=== PATIENT | male | born 1965 | race Caucasian/White ===

== ENCOUNTER 2017-10-30 06:18 | Day surgery (SDC) | payer OTHER ==
[~2017-10-30] VITALS: Ht 162.6 cm; Wt 86.7 kg
[~2017-10-30 06:18] MED LIST: HYDR-762 PO; SECU150P2 SQ
[2017-10-30 07:21] VITALS: Ht 162.6 cm; Wt 86.7 kg
[2017-10-30] MEDS ORDERED: OMEP40CA6 PO (07:28)
[2017-10-30 07:53] VITALS: BP 162/99; PULSE 69; RESP 20
--- NOTE | 2017-10-30 08:36 | OPPN ---
Date/Time of Note Date/Time of Note DATE: 10/30/17 TIME: 08:35 Proc Note GI Procedure Date 10/30/17 Indication: diagnostic Pre-procedure Diagnosis Severe heartburn Post-procedure Diagnosis 1. 3 cm hiatal hernia 2. Erosive esophagitis LA class B 3. Chronic gastritis 4. Gastroparesis Procedure Performed: Endoscopy Surgeon see signature line [employer] none Anesthesia Type: moderate sedation Tourniquet Time none EBL none Transfusion required none Biopsy 1: 3 biopsies from stomach, Biopsy 2: Biopsy from GE junction Grafts/Implants none Tubes/Drains none Complication(s) none Disposition: PACU Procedure Description Dictated YVAN PATEL MD Oct 30, 2017 08:36
[2017-10-30] MEDS ORDERED: FENTAnyl 50 MCG/ML VIAL ONE (08:49)
[2017-10-30] MEDS ORDERED: MIDAZOLAM 1 MG/ML 2 ML INJ ONE ×2 (08:50)
[2017-10-30 09:02] VITALS: BP 129/82; RESP 15
--- NOTE | 2017-10-30 10:33 | GILP ---
DATE OF PROCEDURE: INDICATION: The patient is a 52-year-old male undergoing this procedure for chronic heartburn, not responding to PPI. The risk of the procedure, related and unrelated complications, anesthetic risks, sedative risks, al ternatives discussed and informed consent was obtained DESCRIPTION OF PROCEDURE: Patient was brought to the GI lab, sedated with Versed 4 mg, fentanyl 100 mcg. After optimal sedation, scope was passed with much ease into the esophagus, advanced further d own into the esophagus. Z line was at 36 cm. The patient had a 3 cm hiatal hernia. He also had er osive esophagitis well picked up on NBI. This was LA class 2. Stomach mucosa revealed chronic harshil ritis with some undigested food particles in the fundal area consistent with the diagnosis of gastro paresis. Duodenum, first and second part including ampulla was within normal limits, duodenum had a nonspecific whitish coding. Retroversion in the stomach again confirmed gastroparesis and hiatal h ernia. Scope was straightened out. Multiple biopsies obtained from stomach to rule out Helicobacte r pylori infection. Biopsies obtained from the Z line to rule out Stack's and scope was removed w ith good patient tolerance. IMPRESSION 1. Z line at 36 cm. 2. Patient had a 3 cm hiatal hernia. 3. Erosive esophagitis, LA class B, Stack esophagus needs to be ruled out. 4. Chronic gastritis. 5. Gastroparesis. 6. Normal duodenum. PLAN: Review histopathology. Continue with PPI. Add Reglan to the present regimen. Dictated By: YVAN RAMOS/HUMA Conf#: [id number] DID#: [id number] CC: MICKY NAVARRO MD;*EndCC*
== END 2017-10-30 13:02 | disposition home or self-care (01) ==
LOC: GIL 06:18
PROVIDERS: ATTEND Internal Medicine Gastroenterology
DX: K29.50 Unspecified chronic gastritis without bleeding (principal); K44.9 Diaphragmatic hernia without obstruction or gangrene; K20.9 Esophagitis, unspecified; K31.84 Gastroparesis
CPT/HCPCS: 43239; J2250; J3010; Z7610; 88305; 88312; 88313

== ENCOUNTER → 2018-08-26 | Outpatient (CLI) | END | disposition home or self-care (01) ==